=== PATIENT | female | born 1960 | race American Indian/Alaskan Native ===

== ENCOUNTER 2017-08-09 13:07 | Outpatient (CLI) | payer OTHER ==
--- NOTE | 2017-08-09 23:33 | XRay Report ---
FINAL REPORT PROCEDURE: XR SPINE LUMBOSACRAL 2-3V TECHNIQUE: Lumbar spine radiographs, including AP, lateral, and lumbosacral spot views. CPT 67666 HISTORY: CHRONIC SPINE PAIN COMPARISON: No prior studies are available for comparison. FINDINGS: Alignment: Normal. Vertebral body heights/Disk spaces: Normal. Fracture(s): None. Facets: Facet arthropathy is noted from L2-3 to the L4-5 levels. Bone mineralization: Normal. IMPRESSION: No acute fracture. Facet arthropathy..
--- NOTE | 2017-08-10 00:14 | XRay Report ---
FINAL REPORT PROCEDURE: XR SPINE THORACIC 2V TECHNIQUE: Thoracic spine radiographs, including AP and lateral projections. CPT 62168 HISTORY: CHRONIC SPINE PAIN COMPARISON: No prior studies are available for comparison. FINDINGS: Alignment: Normal . Vertebral body height: Normal . Disk spaces: Narrowing of the intervertebral disc spaces is noted at T5-6 and T6-7. Fracture(s): None . Bone mineralization: Normal . IMPRESSION: Degenerative disc disease at T5-6 and T6-7.
--- NOTE | 2017-08-10 00:15 | XRay Report ---
FINAL REPORT PROCEDURE: XR SPINE CERVICAL 2-3V TECHNIQUE: Cervical spine radiographs, minimum of four views, including AP, lateral and bilateral oblique projections. HISTORY: CHRONIC SPINE PAIN COMPARISON: No prior studies are available for comparison. FINDINGS: There straightening of the cervical spine. Vertebral height and intervertebral disc spaces are well maintained. An acute fracture is not identified. Pre and paravertebral soft tissues are within normal limits. IMPRESSION: No acute fracture Straightening of the cervical spine is most likely secondary to spasm.
== END 2017-08-09 13:08 | disposition home or self-care (01) ==
LOC: XRAY 13:07
PROVIDERS: ATTEND Nurse Practitioner Family
DX: M51.34 Other intervertebral disc degeneration, thoracic region (principal); M12.88 Other specific arthropathies, not elsewhere classified, other specified site; M54.2 Cervicalgia
CPT/HCPCS: 72040; 72070; 72100